=== PATIENT | male | born 1995 | race Caucasian/White ===

== ENCOUNTER 2016-10-06 15:28 | Emergency (ER) | payer OTHER ==
[2016-10-06 15:31] VITALS: BMI 21.5
--- NOTE | 2016-10-06 15:46 | DR.ABDMALE ---
HPI - Time seen Time seen: 15:45 - PCP Primary Care Physician: ANTONIO - HPI comment HPI Comment: PATIENT SAID PAIN WORSE TODAY. NAUSEATED BUT NO VOMITING. LAST BM YESTERDAY. LAST ATE 14:30PM TODAY. - Complaint Chief Complaint Doctors Comments: RLQ ABDOMINAL PAIN TIMES ONE WEEKS WITH FEVER AND HEADACHE. Chief Complaint:: PT. C/O RIGHT LOWER ABDOMINAL PAIN, HEADACHE, AND FEVER. - Reviewed Nurses Notes Review: Yes - Mode of arrival Mode of Arrival: Ambulatory - Timing Onset of Chief Complaint: 09/29/16 Came on: Suddenly - Duration Duration: Constant Duration: Days - Location Location: RLQ - Severity Severity: Moderate - Quality Quality: Sharp - Context Onset: Suddenly History of: None - Modifying factors Worsening Factors: Nothing Improving Factors: Nothing - Associated signs and symptoms Associated Signs and Symptoms: Nausea PMH - PMH Past Medical History: No Past Surgical History: No Surgical History: No History - Family History History of Family Medical Conditions: Yes Family Medical History: Diabetes Mellitus, Hypertension - Social History Does patient currently use any type of tobacco product: No Have you used tobacco products in the last 12 months: No Type of Tobacco Use: None Does any household member use tobacco: No Alcohol Use: None Do you use any recreational Drugs:: No Lives With: Significant Other Lives Where: Home - infectious screening In the last 2 months have you had wt loss of >10#?: NO Have you had fever, night sweats or hemotysis?: No Have you traveled outside the country in the last 6 months?: No Isolation: Standard ROS - Review of Systems Constitutional: Fever. negative: Chills, Diaphoresis Eyes: No Symptoms Reported. negative: Eye Pain, Discharge ENTM: No Symptoms Reported. negative: Ear Pain, Nose Discharge, Nose Congestion , Throat Pain Respiratoy: No Symptoms Reported. negative: Productive Cough, Non-Productive Cough, Short of Breath, Wheezing, Hemoptysis Cardiovascular: No Symptoms Reported. negative: Chest Pain Gastrointestinal/Abdominal: Abdominal Pain, Nausea. negative: Constipation, Diarrhea, Vomiting Genitourinary: No Symptoms Reported. negative: Dysuria, Frequency, Hematuria Neurological: Headache Musculoskeletal: No Symptoms Reported Integumentary: No Symptoms Reported Hematologic/Lymphatic: No Symptoms Reported Endocrine: No Symptoms Reported All Other Systems: Reviewed and Negative PE - Vital Signs Vital Signs: Temp Pulse Pulse Resp BP BP Pulse Ox 10/06/16 19:02 76 17 119/66 10/06/16 15:29 98.2 F 82 17 87/65 100 01/29/16 14:10 106/62 - General Limitations: No Limitations General Appearance: Alert - Head Head Exam: Normal Inspection - Eyes Eye exam: Normal Appearance - ENT ENT Exam: Normal External Ear Exam - Neck Neck Exam: Normal Inspection - Chest Chest Inspection: Symmetric Chest Wall Rise - Respiratory Respiratory Exam: Normal Lung Sounds Bilat Respiratory Exam: Bilateral Clear to Auscultation - Cardiovascular Cardiovascular Exam: Regular Rate, Normal Rhythm, Normal Heart Sounds - Abdominal Exam Abdominal Exam: Normal Bowel Sounds, Soft, Tenderness, Guarding, Rebound. negative: Rigidity Abdominal Tenderness: RLQ, Moderate - Rectal Rectal Exam: Deferred - Back Back Exam: Normal Inspection - Extremeties Extremities Exam: Normal Inspection - Exam: Male: Deferred - Neurologic Neurological Exam: Alert, Oriented X3 - Psychiatric Psychiatric Exam: Normal Affect, Normal Mood - Skin Skin Exam: Normal Color MDM - Additional Information Obtained From Additional information provided by: Family (GIRL FRIEND) Additional Findings:: RLQ ABD PAIN, ACUTE APPENDICITIS, UTI, KIDNEY STONE, BOWEL OBSTRUCTION - Differential Diagnosis Differential Diagnosis: Appendicitis, Bowel Obstruction, Urinary tract infection , Urolithiasis Other differential diagnosis: KIDNEY STONE Course - Treatment Treatment: SEE ORDERS. PATIENT OFFER MED FOR PAIN BUT DID NOT WISH TO WISH PAIN . - Consultation Consultation Comments: DISCUSS PATIENT WITH SURGEON, DR. WEISS. - Education/Counseling Education/Counseling: Patient, Education Educated On: Treatment, Diagnosis ROR - Labs Reviewed Laboratory Results Reviewed?: Yes Result Diagrams: 10/06/16 15:58 10/06/16 15:58 Laboratory: 10/06/16 15:51 Urine,Clean Catch Urine Culture - Preliminary WBC 10.7 X10^3/uL (3.6-10.0) H 10/06/16 15:58 RBC 4.60 X10^6/uL (4.7-6.0) L 10/06/16 15:58 Hgb 13.1 g/dL (13.5-18.0) L 10/06/16 15:58 Hct 38.0 % (42.0-54.0) L 10/06/16 15:58 MCV 82.6 fL (80.0-100.0) 10/06/16 15:58 MCH 28.6 pg (27.0-34.0) 10/06/16 15:58 MCHC 34.6 g/dL (33.0-35.0) 10/06/16 15:58 RDW 14.9 % (11.6-16.5) 10/06/16 15:58 Plt Count 199 X10^3/uL (150.0-450.0) 10/06/16 15:58 MPV 9.5 fL (7.4-11.0) 10/06/16 15:58 Neut % 70.3 % (42.0-75.0) 10/06/16 15:58 Lymph % 16.5 % (21.0-51.0) L 10/06/16 15:58 [place] % 11.7 % (0.0-13.0) 10/06/16 15:58 Eos % 1.0 % (0.9-2.9) 10/06/16 15:58 Baso % 0.5 % (0.2-1.0) 10/06/16 15:58 Neut # 7.5 x10^3/uL (2.2-4.8) H 10/06/16 15:58 Lymph # 1.8 X10^3/uL (1.3-2.9) 10/06/16 15:58 [place] # 1.3 x10^3/uL (0.3-0.8) H 10/06/16 15:58 Eos # 0.1 x10^3/uL (0.0-0.2) 10/06/16 15:58 Baso # 0.1 X10^3/uL (0.0-0.1) 10/06/16 15:58 Absolute Nucleated RBC 0.0 /100WBC 10/06/16 15:58 Sodium 140 mmol/L (136-145) 10/06/16 15:58 Corrected Sodium TNP 10/06/16 15:58 Potassium 3.9 mmol/L (3.5-5.1) 10/06/16 15:58 Chloride 104 mmol/L (98-107) 10/06/16 15:58 Carbon Dioxide 28.9 mmol/L (21-32) 10/06/16 15:58 BUN 11 mg/dL (7-18) 10/06/16 15:58 Creatinine 1.10 mg/dL (0.70-1.30) 10/06/16 15:58 Est GFR (MDRD) Af Amer > 60 (>60) 10/06/16 15:58 Est GFR (MDRD) Non-Af > 60 (>60) 10/06/16 15:58 Glucose 88 mg/dL (65-99) 10/06/16 15:58 Calcium 8.9 mg/dL (8.5-10.1) 10/06/16 15:58 Corrected Calcium TNP 10/06/16 15:58 Total Bilirubin 0.70 mg/dL (0.2-1.0) 10/06/16 15:58 AST 18 Units/L (15-37) 10/06/16 15:58 ALT 26 Units/L (12-78) 10/06/16 15:58 Alkaline Phosphatase 76 Units/L (46-116) 10/06/16 15:58 Total Protein 7.3 g/dL (6.4-8.2) 10/06/16 15:58 Albumin 3.5 g/dL (3.4-5.0) 10/06/16 15:58 Globulin 3.8 g/dL (2.5-4.5) 10/06/16 15:58 Albumin/Globulin Ratio 0.9 Ratio (1.1-2.1) L 10/06/16 15:58 Specimen Type Clean catch urine 10/06/16 15:51 Urine Color Yellow (YELLOW) 10/06/16 15:51 Urine Appearance Cloudy (CLEAR) 10/06/16 15:51 Urine pH 5.0 (5.0 - 8.0) 10/06/16 15:51 Ur Specific [place] 1.020 (1.000-1.030) 10/06/16 15:51 Urine Protein 3+ (NEGATIVE) 10/06/16 15:51 Urine Glucose (UA) Negative (NEGATIVE) 10/06/16 15:51 Urine Ketones 1+ (NEGATIVE) 10/06/16 15:51 Urine Occult Blood 5+ (NEGATIVE) 10/06/16 15:51 Urine Nitrite Positive (NEGATIVE) 10/06/16 15:51 Urine Bilirubin 1+ (NEGATIVE) 10/06/16 15:51 Urine Urobilinogen 1+ (NORMAL) 10/06/16 15:51 Ur Leukocyte Esterase 2+ (NEGATIVE) 10/06/16 15:51 Urine RBC 10 - 20 /HPF (NEGATIVE) 10/06/16 15:51 Urine WBC 01 - 03 /HPF (NEGATIVE) 10/06/16 15:51 Ur Squamous Epith Cells Rare /HPF (NEGATIVE) 10/06/16 15:51 Amorphous Sediment 2+ /HPF (NEGATIVE) 10/06/16 15:51 Urine Bacteria Trace /HPF (NEGATIVE) 10/06/16 15:51 Urine Mucus Moderate /HPF (NEGATIVE) 10/06/16 15:51 Ur Culture Indicated? Yes/culture set up 10/06/16 15:51 - XRAY XRAY Interpreted by: Radiologist XRAY Findings: REPORT DISCUSS WITH PATIENT. - Diagnosis Discharge Problem: Acute appendicitis Qualifiers: Acute appendicitis type: with localized peritonitis Qualified Code(s): K35.3 - Acute appendicitis with localized peritonitis - Discharge Plan Disposition: [facility] Condition: Stable - Follow ups/Referrals Follow ups/Referrals: NFD,None [Primary Care Provider] - 3 days - Instructions
[2016-10-06] MEDS ORDERED: NS 1000 ML 1,000 ML IV ONE (15:48)
[2016-10-06] MEDS ORDERED: NS 1000 ML 1,000 ML ONE (15:52)
[2016-10-06 16:07] LABS: BASOPHILS # (AUTO) 0.1 X10^3/uL (0.0-0.1); BASOPHILS % (AUTO) 0.5 % (0.2-1.0); EOSINOPHILS # (AUTO) 0.1 x10^3/uL (0.0-0.2); HEMOGLOBIN 13.1 g/dL (13.5-18.0); LYMPHOCYTES # (AUTO) 1.8 X10^3/uL (1.3-2.9); LYMPHOCYTES % (AUTO) 16.5 % (21.0-51.0); MEAN CORPUSCULAR HEMOGLOBIN 28.6 pg (27.0-34.0); MEAN CORPUSCULAR HGB CONC 34.6 g/dL (33.0-35.0); MEAN CORPUSCULAR VOLUME 82.6 fL (80.0-100.0); MEAN PLATELET VOLUME 9.5 fL (7.4-11.0); MONOCYTES # (AUTO) 1.3 x10^3/uL (0.3-0.8); MONOCYTES % (AUTO) 11.7 % (0.0-13.0); NEUTROPHILS # (AUTO) 7.5 x10^3/uL (2.2-4.8); NEUTROPHILS % (AUTO) 70.3 % (42.0-75.0); PLATELET COUNT 199 X10^3/uL (150.0-450.0); RED CELL DISTRIBUTION WIDTH 14.9 % (11.6-16.5); WHITE BLOOD COUNT 10.7 X10^3/uL (3.6-10.0)
[2016-10-06 16:18] LABS: BILIRUBIN,URINE 1+ (NEGATIVE); BLOOD/HEMOGLOBIN,URINE 5+ (NEGATIVE); GLUCOSE, URINE NEGATIVE (NEGATIVE); KETONES,URINE 1+ (NEGATIVE); LEUKOCYTE ESTERASE ,URINE 2+ (NEGATIVE); NITRITES,URINE POSITIVE (NEGATIVE); PROTEIN,URINE 3+ (NEGATIVE); UROBILINOGEN,URINE 1+ (NORMAL)
[2016-10-06 16:19] LABS: ALANINE AMINOTRANSFERASE 26 Units/L (12-78); ALBUMIN 3.5 g/dL (3.4-5.0); ALKALINE PHOSPHATASE 76 Units/L (46-116); ASPARTATE AMINO TRANSFERASE 18 Units/L (15-37); BLOOD UREA NITROGEN 11 mg/dL (7-18); CALCIUM 8.9 mg/dL (8.5-10.1); CARBON DIOXIDE 28.9 mmol/L (21-32); CHLORIDE 104 mmol/L (98-107); GLUCOSE 88 mg/dL (65-99); SODIUM 140 mmol/L (136-145); TOTAL PROTEIN 7.3 g/dL (6.4-8.2); eGFR BLACK RACES > 60 (>60); eGFR NON BLACK RACES > 60 (>60)
[2016-10-06 16:54] LABS: APPEARANCE,URINE CLOUDY (CLEAR); COLOR,URINE YELLOW (YELLOW)
[2016-10-06 16:55] LABS: AMORPHOUS SEDIMENT,UR 2+ /HPF (NEGATIVE); BACTERIA,URINE TRACE /HPF (NEGATIVE); MUCUS,URINE MODERATE /HPF (NEGATIVE); SQUAMOUS EPITHELIAL CELL,UR RARE /HPF (NEGATIVE)
[2016-10-06] MEDS ORDERED: NS 100 ML IV + SPIKE MINIBAG* 100 ML IV ONE (17:13)
[2016-10-06 19:03] VITALS: BP 119/66
--- NOTE | 2016-10-06 19:08 | CT ---
EXAM: CT ABDOMEN AND PELVIS WITH CONTRAST INDICATION: Right lower quadrant pain COMPARISION: No priors available for comparison TECHNIQUE: Axial CT examination of the abdomen and pelvis was performed with intravenous contrast. The patient received intravenous contrast without adverse reaction. Coronal and sagittal reconstructions were c reated using the axial data. FINDINGS: The lung bases are clear. The liver, spleen, pancreas, adrenal glands, kidneys, and gallbladder are normal. There is no evidence of biliary ductal dilatation. The aorta and inferior vena cava are norm al in caliber. The bowel loops are nonobstructed. No abnormal mass, lymphadenopathy, or fluid collection. Urinary bladder is normal. The appendix is inflamed and enlarged. The diameter is 1.1 cm. There is a discrete region of inflammation and fluid surrounding the inflamed appendix. No free air identifie d. The regional skeleton is intact. IMPRESSION: Findings are consistent with acute appendicitis with fluid around the inflamed appendix. No free air identified. Reported By:
[2016-10-06] MEDS ORDERED: ROCEPHIN 1 GM IV PREMIX * OUT OF STOCK 50 ML IV ONE (19:18)
[2016-10-06] MEDS ORDERED: ROCEPHIN VIAL 1 GM 1 GM in NS 50 ML IV + SPIKE MINIBAG* 50 ML IV ONE (19:18)
[2016-10-06] MEDS ORDERED: LR 1000 ML IV 1,000 ML IV ONE (19:20)
[2016-10-06] MEDS ORDERED: LR 1000 ML IV 1,000 ML IV SCH (20:00)
== END 2016-10-06 20:05 | disposition short-term general hospital (02) ==
LOC: ER 15:33
DX: K35.3 Acute appendicitis with localized peritonitis (principal); R10.31 Right lower quadrant pain
CPT/HCPCS: 36415; 74177; 80053; 81001; 85025; 87086; 96365; 96367; 96374; 99283; 99285; A4222; J0696; J7120